=== PATIENT | male | born 1950 ===

== ENCOUNTER → 2023-10-08 07:26 | Outpatient (CLI) | payer OTHER ==
[2023-10-08 09:23] LABS: HEMATOCRIT 39.2 % (39.0-48.0); HEMOGLOBIN 13.1 g/dL (13-16.00); MEAN CELL VOLUME 88.4 fL (80.0-100.00); MEAN CORPUSCULAR HEMOGLOBIN 29.6 pg (27.00-32.0); MEAN CORPUSCULAR HGB CONC 33.4 g/dl (32.0-36.0); PLATELET COUNT 228 K/uL (150-450); RED BLOOD COUNT 4.44 M/uL (4.00-6.00); RED CELL DISTRIBUTION WIDTH 13.7 % (11.5-14.5)
[2023-10-08 10:02] LABS: % SATURACION 23.4 % (20-50); ALBUMIN 3.7 gm/dL (3.4-5.0); BILIRUBIN TOTAL 1.5 mg/dL (0.3-1.2); CALCIUM 10.5 mg/dL (8.5-10.1); CREATININE SERUM 0.87 mg/dL (0.70-1.30); FERRITIN 252.1 NG/ML (26-388); GFR 86.26; GLOBULINA 3.3 G/DL (2.4-3.5); POTASSIUM 3.57 mEq/L (3.5-5.1); T4 FREE 1.03 NG/ML (0.76-1.46); TSH 1.35 uIU/mL (0.358-3.74)
[2023-10-10 13:43] LABS: FOLIC ACID > 20.00 ng/ml (4.78-20)
== END | disposition home or self-care (01) ==
LOC: LAB 07:26
PROVIDERS: ATTEND Internal Medicine Hematology & Oncology
DX: D50.8 Other iron deficiency anemias (principal); I10 Essential (primary) hypertension; R74.02 Elevation of levels of lactic acid dehydrogenase [LDH]; K76.89 Other specified diseases of liver; D63.8 Anemia in other chronic diseases classified elsewhere; D51.1 Vitamin B12 deficiency anemia due to selective vitamin B12 malabsorption with proteinuria; D51.0 Vitamin B12 deficiency anemia due to intrinsic factor deficiency; E03.8 Other specified hypothyroidism; E06.3 Autoimmune thyroiditis; R97.0 Elevated carcinoembryonic antigen [CEA]; R97.8 Other abnormal tumor markers; D51.3 Other dietary vitamin B12 deficiency anemia; E78.2 Mixed hyperlipidemia; I48.0 Paroxysmal atrial fibrillation; G47.25 Circadian rhythm sleep disorder, jet lag type; R20.2 Paresthesia of skin

== ENCOUNTER → 2023-12-26 07:58 | Outpatient (CLI) | payer OTHER ==
[2023-12-26 09:23] LABS: HEMATOCRIT 43.6 % (39.0-48.0); MEAN CORPUSCULAR HEMOGLOBIN 29.5 pg (27.00-32.0); MEAN CORPUSCULAR HGB CONC 34.4 g/dl (32.0-36.0); PLATELET COUNT 198 K/uL (150-450); RED BLOOD COUNT 5.07 M/uL (4.00-6.00); RED CELL DISTRIBUTION WIDTH 14.6 % (11.5-14.5)
[2023-12-26 09:39] LABS: BILIRUBIN TOTAL 1.51 mg/dL (0.3-1.2); CALCIUM 10.6 mg/dL (8.5-10.1); CREATININE SERUM 0.9 mg/dL (0.70-1.30); GFR 82.71; GLOBULINA 3.1 G/DL (2.4-3.5); POTASSIUM 3.63 mEq/L (3.5-5.1); T4 FREE 0.95 NG/ML (0.76-1.46); TOTAL PROTEIN 7.1 gm/dL (6.4-8.2); TSH 1.89 uIU/mL (0.358-3.74)
[2023-12-27 12:04] LABS: FOLIC ACID > 20.00 ng/ml (4.78-20)
== END | disposition home or self-care (01) ==
LOC: LAB 07:58
PROVIDERS: ATTEND Internal Medicine Hematology & Oncology
DX: D51.3 Other dietary vitamin B12 deficiency anemia (principal); I10 Essential (primary) hypertension; E78.2 Mixed hyperlipidemia; I48.0 Paroxysmal atrial fibrillation; G47.33 Obstructive sleep apnea (adult) (pediatric); R20.2 Paresthesia of skin; G62.9 Polyneuropathy, unspecified; E03.8 Other specified hypothyroidism; D50.8 Other iron deficiency anemias; K76.89 Other specified diseases of liver; R73.03 Prediabetes; E21.0 Primary hyperparathyroidism; M81.0 Age-related osteoporosis without current pathological fracture

== ENCOUNTER → 2025-01-12 08:23 | Outpatient (CLI) | payer OTHER ==
[2025-01-12 10:34] LABS: HEMOGLOBIN 14.4 g/dL (13-16.00); MEAN CELL VOLUME 88.4 fL (80.0-100.00); MEAN CORPUSCULAR HEMOGLOBIN 30.2 pg (27.00-32.0); MEAN CORPUSCULAR HGB CONC 34.2 g/dl (32.0-36.0); PLATELET COUNT 182 K/uL (150-450); RED BLOOD COUNT 4.76 M/uL (4.00-6.00); RED CELL DISTRIBUTION WIDTH 14.4 % (11.5-14.5)
[2025-01-12 11:00] LABS: % SATURACION 28.1 % (20-50); ALBUMIN 3.9 gm/dL (3.4-5.0); BILIRUBIN TOTAL 2.01 mg/dL (0.3-1.2); CALCIUM 10.3 mg/dL (8.5-10.1); CREATININE SERUM 0.88 mg/dL (0.70-1.30); FERRITIN 131.9 NG/ML (26-388); GFR 84.65; GLOBULINA 3.2 G/DL (2.4-3.5); POTASSIUM 3.93 mEq/L (3.5-5.1); TOTAL PROTEIN 7.1 gm/dL (6.4-8.2)
[2025-01-13 16:58] LABS: FOLIC ACID > 20.00 ng/ml (4.78-20)
[2025-01-14 08:19] LABS: PLATELET ESTIMATE NORMAL (NORMAL)
[2025-01-14 08:20] LABS: MANUAL PLATELET COUNT 264
== END | disposition home or self-care (01) ==
LOC: LAB 08:23
PROVIDERS: ATTEND Internal Medicine Hematology & Oncology
DX: D70.2 Other drug-induced agranulocytosis (principal); D51.1 Vitamin B12 deficiency anemia due to selective vitamin B12 malabsorption with proteinuria; D51.0 Vitamin B12 deficiency anemia due to intrinsic factor deficiency; D51.3 Other dietary vitamin B12 deficiency anemia; I10 Essential (primary) hypertension; E78.2 Mixed hyperlipidemia; I48.0 Paroxysmal atrial fibrillation; G47.33 Obstructive sleep apnea (adult) (pediatric); R20.2 Paresthesia of skin; G62.9 Polyneuropathy, unspecified; E83.52 Hypercalcemia; M81.0 Age-related osteoporosis without current pathological fracture; D35.1 Benign neoplasm of parathyroid gland; D50.8 Other iron deficiency anemias; R79.9 Abnormal finding of blood chemistry, unspecified; R74.02 Elevation of levels of lactic acid dehydrogenase [LDH]; K76.89 Other specified diseases of liver

== ENCOUNTER → 2025-07-20 09:22 | Outpatient (CLI) | payer OTHER ==
[2025-07-20 11:50] LABS: BASO % 0.7 % (0.1-1.2); EOS # 0.14 (0.04-0.54); EOS % 2.4 % (0.7-7.0); LYMPH # 2.46 (1.18-3.74); LYMPH % 42.9 % (19.3-53.1); MEAN PLATELET VOLUME 10.90 fl (9.4-12.4); MONO # 0.50 (0.24-0.82); MONO % 8.7 % (4.7-12.5); NEUT # 2.60 (1.56-6.13); NEUT % 45.3 % (34.0-71.1); RED CELL DISTRIBUTION WIDTH 13.2 % (11.6-14.4)
[2025-07-20 12:58] LABS: % SATURACION 28.8 % (20-50); ALT/SGPT 9.0 U/L (12-78); AST/SGOT 19.0 U/L (15-37); BILIRUBIN TOTAL 3.3 mg/dL (0.3-1.2); BUN CREA RATIO 19.0 (7.0-25.0); CREATININE SERUM 0.91 mg/dL (0.70-1.30); FE 100.0 ug/dl (65-175); GFR 81.44; GLOBULINA 3.2 G/DL (2.4-3.5); GLUCOSE FASTING 93.0 mg/dL (65-100); LDH 178.0 U/L (87-241); OSMOLALITY SERUM 290.0 MOSM/KG (275-295); PROSTATIC SPECIFIC ANTIGEN 3.63 NG/ML (0.010-4.00); T4 FREE 1.05 NG/ML (0.76-1.46); TSH 0.881 uIU/mL (0.358-3.74)
[2025-07-21 12:35] LABS: FOLIC ACID > 20.00 ng/ml (4.78-20)
[2025-07-24 09:08] LABS: ANTI THYROID PEROXIDASE 12 IU/mL (0-34); TRANSFERIN 268 mg/dL (177-329)
== END | disposition home or self-care (01) ==
LOC: LAB 09:22
PROVIDERS: ATTEND Internal Medicine Hematology & Oncology
DX: D50.8 Other iron deficiency anemias (principal); I10 Essential (primary) hypertension; R74.02 Elevation of levels of lactic acid dehydrogenase [LDH]; K76.89 Other specified diseases of liver; D51.1 Vitamin B12 deficiency anemia due to selective vitamin B12 malabsorption with proteinuria; D51.0 Vitamin B12 deficiency anemia due to intrinsic factor deficiency; E03.8 Other specified hypothyroidism; E06.3 Autoimmune thyroiditis; R97.0 Elevated carcinoembryonic antigen [CEA]; D70.2 Other drug-induced agranulocytosis; E78.2 Mixed hyperlipidemia; I48.0 Paroxysmal atrial fibrillation; G47.33 Obstructive sleep apnea (adult) (pediatric); R20.2 Paresthesia of skin; G62.9 Polyneuropathy, unspecified; E83.52 Hypercalcemia; M81.0 Age-related osteoporosis without current pathological fracture; D35.1 Benign neoplasm of parathyroid gland